=== PATIENT | male | born 1985 | race Caucasian/White ===

== ENCOUNTER 2019-01-10 08:35 | Emergency (ER) | payer SELFPAY ==
[2019-01-10 09:01] VITALS: BP 140/93; PULSE 81; O2SAT 100
--- NOTE | 2019-01-10 09:28 | XRAY ---
Indication: Abdomen pain 3 weeks. Difficulty urinating. Multiple contiguous axial images obtained through the abdomen and pelvis without contrast as ordered. Comparison: None Lung bases are clear. Heart is not enlarged. Noncontrasted stomach and bowel loops appear nonobstructed. Normal appendix. Mild scattered colonic fecal debris predominantly in the transverse and descending colon. No free fluid/air. Remaining liver, gallbladder, pancreas, spleen, adrenal glands, kidneys, ureters, bladder, and aorta appear unremarkable for noncontrast exam. Osseous structures intact. No ventral or inguinal hernias. Impression: 1. Mild fecal stasis without obstruction. 2. Remaining CT abdomen/pelvis without contrast exam is negative. CTDI 8.39
--- NOTE | 2019-01-10 09:40 | ERPHSYRPT ---
- History of Present Illness Historian: patient Exam Limitations: no limitations Patient Subjective Stated Complaint: STATES HAS HAD MID ABD PAIN FOR THREE MONTHS EVERY TIME HE COUGHS. YESTERDAY NOTICED A LUMP AROUND UMBILICUS WHEN HE COUGHS AND HAS SHARP PAIN. NORMAL BM YESTERDAY. STATES FEELS PRESSURE WHEN HE VOIDS. Triage Nursing Assessment: ABD SOFT,TENDER MID ABD. SLIGHT SWELLING AROUND UMBILICUS Physician History: Pt is a 33 y/o male that presented to the ED with periumbilical discomfort. Pt had an inguinal hernia repair on the L years ago, and now he feels a "knot" in the belly button and discomfort with coughing and sneezing. Pt is worried because he has a mesh placed, and is wondering if it can travel to his abdomen and cause the pain. Timing/Duration: yesterday Activities at Onset: none Quality: fullness Abdominal Pain Onset Location: periumbilical Pain Radiation: no radiation Severity of Pain-Max: mild Severity of Pain-Current: mild Modifying Factors: Improves With: nothing Associated Symptoms: denies symptoms Previous symptoms: no prior history Hx Tetanus, Diphtheria Vaccination/Date Given: Yes Hx Influenza Vaccination/Date Given: No Hx Pneumococcal Vaccination/Date Given: No - Review of Systems Constitutional: No Fever, No Chills Eyes: No Symptoms Ears, Nose, & Throat: No Symptoms Respiratory: No Cough, No Dyspnea Cardiac: No Chest Pain, No Edema, No Syncope Abdominal/Gastrointestinal: Abdominal Pain Genitourinary Symptoms: No Dysuria Musculoskeletal: No Back Pain, No Neck Pain Neurological: No Dizziness, No Focal Weakness, No Sensory Changes - Past Medical History Pertinent Past Medical History: No - Past Surgical History Past Surgical History: Yes Gastrointestinal: Hernia Repair Other Surgical History: FOOT SURGERY TO REMOVE FOREIGN BODY - Social History Smoking Status: Current every day smoker Exposure to second hand smoke: Yes Drug Use: none Patient Lives Alone: No - Nursing Vital Signs Nursing Vital Signs: Initial Vital Signs Temperature 97.8 F 01/10/19 08:43 Pulse Rate 81 01/10/19 08:43 Respiratory Rate 16 01/10/19 08:43 Blood Pressure 140/93 01/10/19 08:43 O2 Sat by Pulse Oximetry 100 01/10/19 08:43 Pain Scale Pain Intensity 7 - Physical Exam General Appearance: no apparent distress, alert Eye Exam: PERRL/EOMI, eyes nml inspection Ears, Nose, Throat Exam: normal ENT inspection, pharynx normal, moist mucous membranes Neck Exam: normal inspection, non-tender, supple, full range of motion Respiratory Exam: normal breath sounds, lungs clear, No respiratory distress Cardiovascular Exam: regular rate/rhythm, normal heart sounds Gastrointestinal/Abdomen Exam: soft, normal bowel sounds, other (scar tissue is palpated around the umbilicus, from previous trocar placement.) Back Exam: normal inspection, normal range of motion, No CVA tenderness, No vertebral tenderness Extremity Exam: normal inspection, normal range of motion, pelvis stable Neurologic Exam: alert, oriented x 3, cooperative, normal mood/affect, nml cerebellar function, sensation nml, No motor deficits SpO2 Interpretation: normal SpO2: 100 O2 Delivery: Room Air - CT Exams Abdomen/Pelvis CT Interpretation: Negative (mild fecal stasis without obstruction. Remaining CT is negative.) Ordered Tests: Active Orders 24 hr Category Date Time Status ABDOMEN AND PELVIS W/0 CONTRAS [CT] Stat Exams 01/10/19 08:57 Completed - Progress Progress: unchanged Progress Note: 01/10/19 09:42 Pt was seen and examined. Pt has no other medical conditions. He was benign on exam and only small scar tissue is palpated in umbilicus. CT shows some fecal stasis with no other pathology. Pt was reassured and is clear for d/c. Will see patient in: office Counseled pt/family regarding: need for follow-up - Departure Departure Disposition: Home Clinical Impression: Abdominal pain Condition: Stable Critical Care Time: No Additional Instructions: F/U with PCP.
== END 2019-01-10 10:00 | disposition home or self-care (01) ==
LOC: ED 08:35
DX: R10.9 Unspecified abdominal pain (principal)
CPT/HCPCS: 36000; 74176; 99284